=== PATIENT | male | born 1950 | race Two or more races ===

== ENCOUNTER 2020-02-07 14:07 | Emergency (ER) | payer MEDICARE, MEDICAID ==
[~2020-02-07] VITALS: Ht 170.2 cm; Wt 85.9 kg
[~2020-02-07 14:07] MED LIST: CEFD300C37 PO; METH40TA; METH40TA3 PO; METR-90 PO
[2020-02-07 14:12] VITALS: BP 137/89
--- NOTE | 2020-02-07 14:25 | NUR ---
BREAK RN. PT STATES BUG BITE TO LT FA X1 WEEK. PT STATES SOME DRAINAGE. AWAITING ORDERS.
[2020-02-07] MEDS ORDERED: LIDOCAINE-MPF 1%, 2ML ONE (14:48)
[2020-02-07] MEDS ORDERED: LIDOCAINE-MPF 1%, 5ML INFIL ONE (15:00)
== END 2020-02-07 15:24 | disposition home or self-care (01) ==
LOC: ED 15:00
DX: L02.414 Cutaneous abscess of left upper limb (principal); F17.200 Nicotine dependence, unspecified, uncomplicated; M79.602 Pain in left arm
CPT/HCPCS: 10060; 99284

== ENCOUNTER 2020-02-11 16:40 | Emergency (ER) | payer MEDICARE, MEDICAID ==
[~2020-02-11] VITALS: Ht 167.6 cm; Wt 85.5 kg
--- NOTE | 2020-02-11 17:28 | NUR ---
WOUND CLEANED W CHLOROPREP AND BETADINE. WRAPPED IN NON-ADHERENT GAUZE.
== END 2020-02-11 17:58 | disposition home or self-care (01) ==
LOC: ED 17:00
DX: Z48.01 Encounter for change or removal of surgical wound dressing (principal); F17.200 Nicotine dependence, unspecified, uncomplicated
CPT/HCPCS: 99283

== ENCOUNTER 2020-07-20 17:20 | Emergency (ER) | payer MEDICARE, MEDICAID ==
[~2020-07-20] VITALS: Ht 167.6 cm; Wt 85.0 kg
--- NOTE | 2020-07-20 19:39 | NUR ---
PT NOT IN LOBBY WHEN CALLED. 1ST ATTEMPT
--- NOTE | 2020-07-20 21:13 | NUR ---
PT TO RM FROM LOBBY
[2020-07-20] MEDS ORDERED: LIDOCAINE 2%, 20ML SQ ONE (21:30)
[2020-07-20] MEDS ORDERED: SULFAMETH./TRIMETHOPRIM DS 800MG/160MG TABLET PO ONE (21:30)
[2020-07-20] MEDS ORDERED: CEPHALEXIN 500 MG CAPSULE PO ONE (21:30)
[2020-07-20] MEDS ORDERED: LIDOCAINE-MPF 2% ,5ML ONE (21:36)
[2020-07-20] MEDS ORDERED: SULFAMETH./TRIMETHOPRIM DS 800MG/160MG TABLET ONE (21:36)
[2020-07-20] MEDS ORDERED: CEPHALEXIN 500 MG CAPSULE ONE (21:36)
--- NOTE | 2020-07-20 21:44 | NUR ---
PT MEDICATED WITH ABX
[2020-07-20 23:21] VITALS: BP 123/73
--- NOTE | 2020-07-20 23:21 | NUR ---
Patient given discharge instructions and they have confirmed that they understand the instructions. Patient ambulatory with steady gait.
== END 2020-07-20 23:23 | disposition home or self-care (01) ==
LOC: ED 23:00
DX: L03.114 Cellulitis of left upper limb (principal); F11.10 Opioid abuse, uncomplicated; F15.10 Other stimulant abuse, uncomplicated; F17.200 Nicotine dependence, unspecified, uncomplicated
CPT/HCPCS: 10060; 99283

== ENCOUNTER 2020-07-24 13:39 | Emergency (ER) | payer MEDICARE, MEDICAID ==
[~2020-07-24] VITALS: Ht 167.6 cm; Wt 84.5 kg
[2020-07-24 13:44] VITALS: BP 127/82
== END 2020-07-24 14:04 | disposition home or self-care (01) ==
LOC: ED 13:58
DX: Z48.01 Encounter for change or removal of surgical wound dressing (principal)
CPT/HCPCS: 99282

== ENCOUNTER 2020-08-19 16:21 | Emergency (ER) | payer MEDICARE, MEDICAID ==
[~2020-08-19] VITALS: Ht 167.6 cm; Wt 85.3 kg
[2020-08-19] MEDS ORDERED: SODIUM CHLORIDE FLUSH 10ML SYR IVF ONE (18:00)
[2020-08-19 18:17] LABS: BASOPHILS % (AUTO) 1 % (0-1); EOSINOPHILS % (AUTO) 5 % (1-7); LYMPHOCYTES % (AUTO) 14 % (22-44); MEAN CORPUSCULAR HEMOGLOBIN 26.3 pg (27.5-34.5); MEAN CORPUSCULAR HGB CONC 32.5 g/dL (33.2-36.2); MEAN PLATELET VOLUME 7.9 fL (7.4-10.4); MONOCYTES % (AUTO) 7 % (2-9); NEUTROPHILS % (AUTO) 74 % (42-75); PLATELET COUNT 233 x10^3/uL (130-400); RED BLOOD COUNT 4.89 x10^6/uL (4.38-5.82); RED CELL DISTRIBUTION WIDTH 15.7 % (9.4-14.8)
[2020-08-19 18:19] LABS: MD NO
[2020-08-19 18:26] LABS: ALBUMIN 3.5 g/dL (3.4-5.0); ANION GAP 3 mmol/L (5-15); CALCIUM 8.7 mg/dL (8.5-10.1); CHLORIDE 109 mmol/L (98-107)
[2020-08-19 18:29] LABS: ALANINE AMINOTRANSFERASE 22 U/L (12-78); ALKALINE PHOSPHATASE 69 U/L (45-117); BILIRUBIN,TOTAL 0.7 mg/dL (0.2-1.0); CREATININE 1.28 mg/dL (0.7-1.3); TOTAL PROTEIN 8.1 g/dL (6.4-8.2)
--- NOTE | 2020-08-19 18:52 | NUR ---
This pt is an IV drug user. He is continually asking "how long will this take, how long will I be here?" Pt has been to and from imaging.
--- NOTE | 2020-08-19 19:01 | NUR ---
Report to LILIAN CABEZAS. Pt resting in bed, watching TV, [place].
--- NOTE | 2020-08-19 19:11 | NUR ---
Report received from LILIAN Beatty. This RN to assume care. Awaiting CT results. Patient up to bathroom.
[2020-08-19] MEDS ORDERED: SULFAMETH./TRIMETHOPRIM DS 800MG/160MG TABLET PO ONE (19:30)
[2020-08-19] MEDS ORDERED: CEPHALEXIN 500 MG CAPSULE PO ONE (19:30)
[2020-08-19] MEDS ORDERED: NEOSPORIN OINT. PKT 1 PACKET ONE (19:47)
[2020-08-19] MEDS ORDERED: SULFAMETH./TRIMETHOPRIM DS 800MG/160MG TABLET ONE (19:47)
[2020-08-19] MEDS ORDERED: LEVETIRACETAM 500 MG TABLET ONE (19:48)
[2020-08-19] MEDS ORDERED: CEPHALEXIN 500 MG CAPSULE ONE (19:51)
[2020-08-19 19:53] VITALS: BP 110/62
--- NOTE | 2020-08-19 20:28 | NUR ---
Discharge instructions given. All questions and concerns addressed. Patient ambulatory with a steady gait. Belongings with patient.
[2020-08-19] MEDS ORDERED: OMNIPAQUE 350 MG/ML, 100ML BOTTLE ONE (22:11)
== END 2020-08-19 20:55 | disposition home or self-care (01) ==
LOC: ED 17:57
DX: L03.115 Cellulitis of right lower limb (principal); F10.10 Alcohol abuse, uncomplicated; Y90.0 Blood alcohol level of less than 20 mg/100 ml; F17.200 Nicotine dependence, unspecified, uncomplicated
CPT/HCPCS: 36415; 73701; 80053; 85025; 99285; Q9967

== ENCOUNTER 2020-11-30 23:22 | Emergency (ER) | payer MEDICARE, MEDICAID ==
[~2020-11-30] VITALS: Ht 167.6 cm; Wt 80.0 kg
[~2020-11-30 23:22] MED LIST changes: +ACET1TAB64 PO; +AMOX1TAB64 PO; +DULO60CA56 PO; +GABA300S PO; +HYDR50CA PO; +LEVO25TA2 PO; +TAMS-11 PO
[2020-11-30 23:35] VITALS: BP 148/92
[2020-11-30] MEDS ORDERED: NEOSPORIN OINT. PKT 1 PACKET ONE (23:54)
--- NOTE | 2020-11-30 23:56 | NUR ---
PT AMBULATED TO ROOM, NO DISTRESS NOTED. PT HAS 4 SUTURES TO POSTERIOR PORTION OF LEFT ARM. EDGES APPROXIMATED AND HEALED, AND SMALL SCABS NOTED. 4 SUTURES REMOVED, WITHOUT INCIDENT, AND INTACT. PT TOLERATED WELL, AND AWAITING D/C INSTRUCTIONS.
--- NOTE | 2020-12-01 00:16 | NUR ---
F/U AND D/C INSTRUCTIONS GIVEN TO PT AND HE V/U. PT AMBULATORY AND D/C'D WITHOUT INCIDENT.
== END 2020-12-01 00:18 | disposition home or self-care (01) ==
LOC: ED 23:38
DX: S41.112D Laceration without foreign body of left upper arm, subsequent encounter (principal); X58.XXXD Exposure to other specified factors, subsequent encounter
CPT/HCPCS: 99281

== ENCOUNTER 2021-05-03 10:02 | Emergency (ER) | payer MEDICARE, MEDICAID ==
[~2021-05-03] VITALS: Ht 167.6 cm; Wt 73.9 kg
[2021-05-03 10:10] VITALS: BP 140/98
[2021-05-03] MEDS ORDERED: LIDOCAINE-MPF 1%, 5ML INFIL ONE (11:00)
== END 2021-05-03 14:45 | disposition left against medical advice (07) ==
LOC: ED 14:42
DX: K04.7 Periapical abscess without sinus (principal)
CPT/HCPCS: 99281

== ENCOUNTER 2021-05-03 17:34 | Emergency (ER) | payer MEDICARE, MEDICAID ==
[~2021-05-03] VITALS: Ht 167.6 cm; Wt 73.3 kg
--- NOTE | 2021-05-03 17:39 | NUR ---
CHILD AND ADOLESCENT THERAPIST: NOT IN LOBBY WHEN CALLED FOR TRIAGE
[2021-05-03] MEDS ORDERED: LIDOCAINE-MPF 1%, 5ML INFIL ONE (18:30)
[2021-05-03] MEDS ORDERED: LIDOCAINE-MPF 1%, 5ML ONE (20:29)
[2021-05-03] MEDS ORDERED: L.E.T SOLUTION TP ONE ×2 (21:30)
--- NOTE | 2021-05-03 22:35 | NUR ---
DC EDUCATION PROVIDED, PT DEMONSTRATES UNDERSTANDING. PT AMBULATED STEADILY TO DC WITH RN
[2021-05-03 22:36] VITALS: BP 150/70
== END 2021-05-03 22:37 | disposition home or self-care (01) ==
LOC: ED 17:39
DX: L03.113 Cellulitis of right upper limb (principal); L02.413 Cutaneous abscess of right upper limb; Z90.89 Acquired absence of other organs; F17.210 Nicotine dependence, cigarettes, uncomplicated; Z88.4 Allergy status to anesthetic agent
CPT/HCPCS: 10060; 99283

== ENCOUNTER 2021-05-06 19:27 | Emergency (ER) | payer MEDICARE, MEDICAID ==
[~2021-05-06] VITALS: Ht 167.6 cm; Wt 75.0 kg
[2021-05-06 19:32] VITALS: BP 147/84
--- NOTE | 2021-05-06 20:11 | NUR ---
Patient given discharge instructions and they have confirmed that they understand the instructions. Patient ambulatory with steady gait. NAD, all questions answered appropriately, denies additional needs at this time. No personal belongings left in room after discharge. PATIENT PROVIDED WITH TAXI VOUCHER.
== END 2021-05-06 20:14 | disposition home or self-care (01) ==
LOC: ED 20:05
DX: Z48.01 Encounter for change or removal of surgical wound dressing (principal); F17.210 Nicotine dependence, cigarettes, uncomplicated; Z72.9 Problem related to lifestyle, unspecified
CPT/HCPCS: 99406